=== PATIENT | male | born 1960 | race Caucasian/White ===

== ENCOUNTER 2024-11-09 14:17 | Outpatient (AMB) | payer OTHER, SELFPAY ==
--- OUTSIDE RECORDS SUMMARY | 2024-11-09 14:23 | XMS_ITS ---
Author Name [facility] Organization Unknown Care Team Organization Name Specialty Phone Email Start Date End Da te [facility]il [facility] 02/13/20222023
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
== END 2024-11-09 14:50 | disposition home or self-care (01) ==
LOC: HO.HSM 14:18
PROVIDERS: PCP Internal Medicine; Referring Provider Internal Medicine; Visit Provider Registered Nurse
DX: G40.209 Localization-related (focal) (partial) symptomatic epilepsy and epileptic syndromes with complex partial seizures, not intractable, without status epilepticus (principal); Z87.820 Personal history of traumatic brain injury
CPT/HCPCS: 99213

== ENCOUNTER → 2024-11-09 14:17 | Outpatient (BNVA) | payer MEDICARE, MEDICAID, SELFPAY | PROVIDERS: PCP Internal Medicine; Referring Provider Internal Medicine; Visit Provider Registered Nurse | DX: G40.209 Localization-related (focal) (partial) symptomatic epilepsy and epileptic syndromes with complex partial seizures, not intractable, without status epilepticus (principal); G93.40 Encephalopathy, unspecified; Z87.820 Personal history of traumatic brain injury | CPT/HCPCS: 99212 ==